=== PATIENT | male | born 1970 | race Caucasian/White ===

== ENCOUNTER 2020-10-13 19:55 | Outpatient (CLI) | payer OTHER | END 2020-10-14 06:39 | disposition home or self-care (01) | LOC: SLEEP 19:55 | PROVIDERS: ATTEND Nurse Practitioner | DX: G47.33 Obstructive sleep apnea (adult) (pediatric) (principal) | CPT/HCPCS: 95810 ==

== ENCOUNTER 2021-11-01 20:27 | Outpatient (CLI) | payer OTHER | END 2021-11-02 06:19 | LOC: SLEEP 20:27 | PROVIDERS: ATTEND Nurse Practitioner | DX: G47.33 Obstructive sleep apnea (adult) (pediatric) (principal) | CPT/HCPCS: 95811 ==